=== PATIENT | female | born 1980 | race Caucasian/White ===

== ENCOUNTER 2022-04-15 13:51 | Emergency (ER) | payer MEDICAID, SELFPAY ==
[2022-04-15 13:58] VITALS: BP 124/84; PULSE 99; RESP 20; TEMP 36.5; O2SAT 97; BMI 49.4
--- NOTE | 2022-04-15 14:07 | CRLHL7_ITS ---
For Patients: As a result of the Cures Act, medical imaging exams and procedure reports are released immediately into your electronic medical record. You may view this report before your referring provider. If you have questions, please contact your health care provider. Indication: Injury. Technique: Right ankle, 2 views. Comparison: None. Findings: Bones: Alignment is normal. No fractures or bone lesions. Joint spaces: Mild degenerative changes including calcaneal spur.. Soft tissues: Minimal soft tissue swelling surrounding the ankle.. Impression: No acute fracture or dislocation. Dictated by Penny Schmidt MD @ 04/15/2022 3:07:41 PM (Electronically Signed)
--- NOTE | 2022-04-15 14:15 | CRLHL7_ITS ---
For Patients: As a result of the Cures Act, medical imaging exams and procedure reports are released immediately into your electronic medical record. You may view this report before your referring provider. If you have questions, please contact your health care provider. Indication: Injury Technique: Three views Comparison: None Findings: Bones: Acute transverse fracture base of the 5th metatarsal without distraction or displacement. Well-formed plantar heel spur. Joint spaces: Unremarkable. Soft tissues: Lateral soft tissue swelling. Dictated by Jb Ortiz MD @ 04/15/2022 3:09:45 PM (Electronically Signed)
--- NOTE | 2022-04-15 14:16 | ED.GENADULT ---
HPI - General Adult General Time Seen by Provider: 14:16 Date Seen: 04/15/22 Chief complaint: Extremity Pain/Injury, Lower Stated complaint: Ankle Injury Time Seen by Provider: 04/15/22 13:54 Source: patient Mode of arrival: ambulatory Limitations: no limitations History of Present Illness HPI narrative: Patients are a pleasant 41 year white female who rolled her right ankle yesterday has pain over her lower right lateral foot and her lateral ankle but mostly over the foot. She has noticed some soft tissue swelling there. She has been able to weightbear but had walks on the left side of her foot avoiding the right side of her right ankle area. The patient has no prior injury there is generally healthy. Is on Vyvanse sertraline and bupropion. She heard some crunching and cracking when this happened. Related Data Home Medications Medication Instructions Recorded Confirmed bupropion HCl 150 mg 24 hr tablet, 150 mg PO DAILY 04/15/22 04/17/22 extended release lisdexamfetamine 40 mg capsule 40 mg PO DAILY 04/15/22 04/17/22 (Vyvanse) sertraline 100 mg tablet 100 mg PO DAILY 04/15/22 04/17/22 Allergies Allergy/AdvReac Type Severity Reaction Status Date / Time No Known Drug Allergies Allergy Verified 04/15/22 14:04 Review of Systems Narrative: No history of prior ankle injury or other foot or ankle problems PFSH PFSH Social History Smoking Status: Former smoker What tobacco products do you use: cigarettes Do you use any of these nicotine containing products: Vaping Products Second hand tobacco smoke exposure: No How often do you have a drink containing alcohol: never How often do you have six or more drinks on one occasion: Never AUDIT-C Alcohol total score: 0 Non-prescribed substance use: denies use Exam Narrative: Exam Narrative: Objective: Vital signs unremarkable patient's right lower extremity shows no proximal fibular tenderness full range of motion of the knee the ankle shows some mild soft tissue swelling over the lateral ankle but most soft tissue swelling of her proximal 5th metatarsal and some diffuse forefoot tenderness laterally. No open wounds good distal CMS. Const: Vital Signs, click to edit/add: Vital Signs - 24 hr 04/15/22 13:58 Temperature 97.7 F Pulse Rate [Pulse Oximeter] 99 Respiratory Rate 20 Blood Pressure [Ri ght Upper Arm] 124/84 Pulse Oximetry 97 Oxygen Delivery Me thod Room Air Course Vital Signs Vital signs: Initial Vital Signs Temperature 97.7 F 04/15/22 13:58 Temperature Source Temporal Artery Scan 04/15/22 13:58 Pulse Rate 99 04/15/22 13:58 Respiratory Rate 20 04/15/22 13:58 Blood Pressure 124/84 04/15/22 13:58 Blood Pressure Mean 97 04/15/22 13:58 Blood Pressure Position Sitting 04/15/22 13:58 Pulse Oximetry 97 04/15/22 13:58 Oxygen Delivery Method 04/15/22 13:58 Vital Signs Temperature 97.7 F 04/15/22 13:58 Pulse Rate 99 04/15/22 13:58 Respiratory Rate 20 04/15/22 13:58 Blood Pressure 124/84 04/15/22 13:58 Pulse Oximetry 97 04/15/22 13:58 Oxygen Delivery Method 04/15/22 13:58 Temperature 97.7 F 04/15/22 13:58 Pulse Rate 99 04/15/22 13:58 Respiratory Rate 20 04/15/22 13:58 Blood Pressure 124/84 04/15/22 13:58 Pulse Oximetry 97 04/15/22 13:58 Oxygen Delivery Method 04/15/22 13:58 Medical Decision Making MDM Narrative Medical decision making narrative: Patient has an inversion sprain to her right foot and ankle will check a x-ray of her ankle and foot. Suspect a 5th metatarsal fracture. Disposition pending x-ray findings. Addendum: The patient on x-ray by my read has a proximal 5th metatarsal fracture nondisplaced, a Schneider fracture. The patient will get a Cam walker be nonweightbearing, crutches, ibuprofen and Tylenol as needed, ortho follow-up in 3-5 days. She was comfortable this will follow up as directed thanks Discharge Plan Discharge Clinical Impression: Acute pain of right foot, Ankle sprain and strain Patient Disposition: Home, Self-Care Condition: Stable Additional Instructions: Cam walker, crutches, protection of the right foot, nonweightbearing. Ibuprofen and Advil as needed. Orthopedic follow-up in the next few days. Follow up appointment is scheduled at the [facility] on 04/21 with a 10am arrival time. If you have any questions or need to reschedule, please call [phone]. [facility] [address] [place] [id number] Activity Level: Light activity and No Weight Bearing Activity Detail: rt foot Discharge Diet: Regular Prescriptions: No Action sertraline 100 mg tablet 100 mg PO DAILY Vyvanse 40 mg capsule 40 mg PO DAILY bupropion HCl 150 mg tablet extended release 24 hr 150 mg PO DAILY Stand Alone Forms: [employer] Info Instructions
== END 2022-04-15 15:27 | disposition home or self-care (01) ==
LOC: ED 14:27 → OB 15:16
PROVIDERS: Emergency Provider Family Medicine
DX: S93.401A Sprain of unspecified ligament of right ankle, initial encounter (principal); M79.671 Pain in right foot
CPT/HCPCS: 29505; 73610; 73630; 99283